=== PATIENT | male | born 1965 | race Caucasian/White ===

== ENCOUNTER 2020-07-08 09:34 | Inpatient (IN) | payer OTHER, SELFPAY ==
[2020-07-08] VITALS (7 sets, daily range): BP systolic 117–146; BP diastolic 71–98; PULSE 80–102; RESP 13–20; TEMP 36.6–36.7; O2SAT 94–97; BMI 34.1; BMI 33.5
--- NOTE | 2020-07-08 10:09 | ED.DCSUM_ITS ---
History of Present Illness Chief Complaint: ETOH Intox Informant: Patient Narrative: 55-year-old male presenting with alcoholic intoxication. Patient states he was sober for 6 years and started drinking about 10 days ago. He admits to drinking at least 1/5 of alcohol a day. He states he also drinks beer. Patient states that he has had alcohol withdrawal and is concerned he will withdrawal if he stops drinking. Patient denies drug abuse. Patient states he is physically active prior to this and has lost a lot of weight. Patient presenting for detox. Past Medical History - Allergies and Home Meds Allergies/Adverse Reactions: Allergies No Known Allergies Allergy (Verified 07/08/20 09:37) Prior records reviewed: Yes Past Medical History: - - Hypertension, EtOH abuse Lives: Spouse/ Significant Other Smoking Status: Never smoker Alcohol: None Drugs: None - Family History Maternal Family History: Reports: No pertinent history Paternal Family History: Reports: No pertinent history Review of Systems General: Denies: Chills, Fever, Sweats Eyes: Denies: Visual changes - bilaterally, Diplopia ENT: Denies: Rhinorrhea, Sore throat Respiratory: Denies: Dyspnea, Cough, Dyspnea on exertion Gastrointestinal: Denies: Abdominal pain, Nausea, Vomiting, Diarrhea, Melena, Hematochezia Genitourinary: Denies: Dysuria, Hematuria, Frequency Musculoskeletal: Denies: Back pain, Extremity Pain Skin: Denies: Rash, Wounds Neurological: Denies: Headache, Weakness, Numbness Psych: Denies: Depression, Anxiety, Suicidal thoughts, Suicidal ideations, -, - Physical Exam Vital Signs/Narrative: Vital Signs Temp Pulse Resp BP Pulse Ox 07/08/20 09:38 98.0 F 91 17 146/98 H 96 General: Well nourished, Well developed, No Acute Distress Head: Normocephalic, Atraumatic Eyes: Perrl, EOMI ENT: Moist mucous membranes, No rhinorrhea Cardiovascular: Regular rate, Regular rhythm Abdomen: Soft, Nontender, Nondistended, Normal bowel sounds Back: Nontender, Normal Inspection Extremities: Nontender, No edema Skin: Normal color, No rash Neurological: Alert, Oriented x3, Cranial nerves II-XII grossly intact, Normal Strength, Normal Sensation Psychological: Normal affect, Normal Mood Diagnostic/Tx/Re-eval Laboratory Data 07/08/20 07/08/20 07/08/20 10:15 10:15 10:15 WBC 6.0 RBC 5.07 Hgb 15.0 Hct 45.4 MCV 89.5 MCH 29.6 MCHC 33.0 RDW Std Deviation 43.0 RDW Coeff of Trever 13.2 Plt Count 230 MPV 8.8 Immature Gran % (Auto) 0.300 Neut % (Auto) 58.1 Lymph % (Auto) 28.0 [place] % (Auto) 7.6 Eos % (Auto) 4.5 Baso % (Auto) 1.5 H Absolute Neuts (auto) 3.5 Absolute Lymphs (auto) 1.69 Nucleated RBC % 0 Sodium 139 Potassium 3.9 Chloride 103 Carbon Dioxide 26.0 Anion Gap 10 BUN 9 Creatinine 0.77 Estim Creat Clear Calc 112.73 Est GFR (MDRD) Af Amer 133 Est GFR (MDRD) Non-Af 110 BUN/Creatinine Ratio 11.6 Glucose 91 Calcium 8.4 L Total Bilirubin 0.40 AST 43 H ALT 59 Alkaline Phosphatase 52 Total Protein 8.1 Albumin 4.0 Globulin 4.1 Albumin/Globulin Ratio 1.0 Ethyl Alcohol 334.0 H* - Medical Decision Making 55-year-old male presenting for EtOH detox. He states he has been drinking up to 1/5 a day. Patient states he had not been drinking for about 6 years and then recently started. Patient does not appear to be in withdrawal actively. He states he drank before he came. His EtOH is 334. His other lab work is unremarkable. Patient requested something for nausea and this was provided. Patient will be admitted to the hospital for detox. Impression: 1. EtOH abuse 2. EtOH intoxication ED Disposition - Plan for ED Patient: Disposition: Acute Care Hospital [facility]
[2020-07-08 10:35] LABS: AST(SGOT) 43 U/L (15-37); Alanine Aminotransfer ALT/SGPT 59 U/L (16-61); Alkaline Phosphatase 52 U/L (45-117); Anion Gap 10 (5-15); BUN 9 mg/dL (7-18); BUN/Creat Ratio 11.6 RATIO (10-20); Calcium,Total 8.4 mg/dL (8.5-10.1); Chloride 103 mmol/L (98-107); Creatinine, Serum 0.77 mg/dL (0.70-1.30); EST Glomerular Filtration Rate 110 mL/min (>60); Est Glom Filt Rate - Afr Amer 133 mL/min (>60); Estimated Creatinine Clearance 112.73 ml/min; Globulin 4.1 g/dL (2.2-4.2); Glucose 91 mg/dL (74-106); Potassium 3.9 mmol/L (3.5-5.1); Protein, Total 8.1 g/dL (6.4-8.2); Sodium Level 139 mmol/L (136-145)
[2020-07-08 10:41] LABS: Absolute Lymphocyte Count 1.69 X10^3/uL (0.83-4.51); Absolute Neutrophil Count 3.5 X10^3/uL (2.0-7.7); Basophil# 0.09 X10^3/uL; Basophil% 1.5 % (0-1); Eosinophil# 0.27 X10^3/uL; Eosinophils% 4.5 % (0-5); Hematocrit 45.4 % (40-54); Lymphocyte # 1.69 X10^3/ul (4.0); Mean Corpuscular Hgb 29.6 pg (27.0-32.0); Mean Corpuscular Volume 89.5 fL (80-94); Mean Platelet Vol. 8.8 fl (6.2-12.0); Monocyte# 0.46 X10^3/uL; Monocyte% 7.6 % (0-10); NRBC Flagged by Analyzer 0 % (0-5); Neutrophil # 3.51 X10^3/uL (2.7-7.7); Neutrophil % 58.1 % (47-70); Platelet Count 230 K/mm3 (150-450); RBC Distribution Width CV 13.2 % (11.6-14.6); Red Blood Count 5.07 M/mm3 (4.6-6.2)
[2020-07-08] MEDS: Ondansetron 4 MG/2 ML Vial IV (11:15)
--- NOTE | 2020-07-08 11:47 | PCM.HP.STD ---
Problem List (1) Acute alcohol withdrawal Status: Acute (2) Acute alcohol intoxication Status: Acute (3) Depression Status: Chronic (4) Hypertension Status: Chronic (5) Alcohol abuse Status: Chronic History of Present Illness Date of Admission: 07/08/20 Chief Complaint: Presented to the ED requesting admission for acute alcohol intoxication/withdrawal. The patient is a 55 year old M presented to the ED with icon intoxication requesting admission for medical stabilization to avoid going into severe withdrawal. Patient stated that he was sober for 6 years but started to drink again over the last 10 days. He has been drinking every day, 1/5 of vodka every day and also drinks beers. His last drink was this morning around 3 AM. Patient did mention that he had a history of severe alcohol withdrawal symptoms and he is afraid that he will go into severe withdrawal if he stops drinking. At this time, he denied significant withdrawal symptoms. He complained of nausea, denied abdominal pain or vomiting. He denied chest pain or shortness of breath. He has history of hypertension and he has been on Accupril and Corgard and his blood pressure has been stable. He had a history of depression and he has been on Lexapro. In the emergency department, his vital signs were stable. His routine blood work was unremarkable. LFT was unremarkable. Blood alcohol level is 354. Urine drug screen is pending. He is being admitted for acute alcohol intoxication/withdrawal for medical stabilization. Past Medical History Past Medical History (Chronic Problems): Chronic Problems Depression (Chronic) Hypertension (Chronic) Alcohol abuse (Chronic) Allergies No Known Allergies Allergy (Verified 07/08/20 09:37) Home Medications: Ambulatory Orders Medication Instructions Recorded Escitalopram Oxalate [Lexapro] 10 mg PO DAILY 07/08/20 Nadolol [Corgard] 40 mg PO DAILY 07/08/20 Quinapril HCl [Accupril] 40 mg PO DAILY 07/08/20 Surgical History: - - Cervical spine fusion surgery. Psychiatric History: Depression Lives: Spouse/ Significant Other Smoking Status: Never smoker Alcohol: Heavy Drugs: None - *Family History Maternal History Items: No pertinent history Paternal History Items: No pertinent history Review of Systems Constitutional: Denies: Anorexia, Chills, Fever, Weakness Eyes: Denies: Blurred vision, Double vision, Drainage, Redness HEENT: Denies: Difficulty Hearing, Dysphasia, Ear Pain, Eye Pain, Nasal Congestion Cardiovascular: Denies: Chest Pain, Chest Pressure, Edema, Light Headedness, Palpitations, Syncope Respiratory: Denies: Cough, Pleuritic Pain, Shortness of Breath, Sputum production, Wheezing Gastrointestinal: Reports: Nausea. Denies: Abdominal Pain, Constipation, Diarrhea, Vomiting Genitourinary: Denies: Dysuria, Frequency, Hematuria Musculoskeletal: Denies: Arm Pain, Back Pain, Foot Pain Skin: Denies: Dryness, Rash Neurological: Denies: Balance problems, Change in Speech, Slurred speech, Confusion, Headaches, Incoordination, Numbness Psychiatric: Reports: Depression. Denies: Anxiety Endocrine: Denies: Change in Body Habitus, Polydipsia, Polyuria VTE Information - Inpt Only VTE Present on Admission: No VTE Mechan Device Prophylaxis: None VTE Pharm Prophylaxis ordered?: No - Physical Exam Vitals/I&O's: Vital Signs Temp Pulse Resp BP Pulse Ox 98.0 F 88 20 H 117/72 97 07/08/20 11:33 07/08/20 11:33 07/08/20 11:33 07/08/20 11:33 07/08/20 11:33 Oxygen Delivery Method Room Air Weight: 244 lb 7.882 oz Body Mass Index (BMI) 34.1 General: Alert, Oriented x3, Cooperative, No apparent distress HEENT: Atraumatic, PERRLA, EOMI, Normocephalic Oral: Moist Mucosa, No Gingival or Mucosal Lesions/ Ulcerations Neck: Supple, No JVD, Negative Carotid Bruits, Trachea Midline, Thyroid Normal Size and Texture Lungs: Clear to auscultation, Normal air movement, No rhonchi, No wheeze, No rales Cardiovascular: Regular rate, Regular Rhythm, Normal S1, Normal S2, No murmurs, PMI Normal Abdomen: Bowel Sounds Present, Soft, Non Tender, Non-Distended, No Hepato-splenomegaly Extremities: No clubbing, No cyanosis, No edema Skin: No rashes, No breakdown Lymphatic: No Cervical, Supraclavicular, or Inguinal Adenopathy Neurological: Cranial nerves II-XII grossly intact, Motor Exam 5/5 strength throughout Psych/Mental Status: Normal Affect, Appropriate, Alert and oriented to time, place, person, mood and affect Laboratory Results 07/08/20 10:15: Sodium 139, Potassium 3.9, Chloride 103, Carbon Dioxide 26.0, Anion Gap 10, BUN 9, Creatinine 0.77, Estim Creat Clear Calc 112.73, Est GFR (MDRD) Af Amer 133, Est GFR (MDRD) Non-Af 110, BUN/Creatinine Ratio 11.6, Glucose 91, Calcium 8.4 L, Total Bilirubin 0.40, AST 43 H, ALT 59, Alkaline Phosphatase 52, Total Protein 8.1, Albumin 4.0, Globulin 4.1, Albumin/Globulin Ratio 1.0 07/08/20 10:15: Ethyl Alcohol 334.0 H* 07/08/20 10:15: WBC 6.0, RBC 5.07, Hgb 15.0, Hct 45.4, MCV 89.5, MCH 29.6, MCHC 33.0, RDW Std Deviation 43.0, RDW Coeff of Trever 13.2, Plt Count 230, MPV 8.8, Immature Gran % (Auto) 0.300, Neut % (Auto) 58.1, Lymph % (Auto) 28.0, [place] % (Auto) 7.6, Eos % (Auto) 4.5, Baso % (Auto) 1.5 H, Absolute Neuts (auto) 3.5, Absolute Lymphs (auto) 1.69, Nucleated RBC % 0 Assessment/Plan All Active Problems Acute alcohol withdrawal (Acute) Acute alcohol intoxication (Acute) This is a 55 years old male patient presented to the emergency room requesting admission for acute alcohol intoxication/withdrawal for medical stabilization #1 acute alcohol intoxication/withdrawal: Currently, blood alcohol level is 334. Patient is alert, oriented x3. He states that he will history of severe withdrawal symptoms and he is afraid of going into severe withdrawal if he stops drinking. Currently, vital signs are stable. Routine blood work was unremarkable. Urine drug screen was ordered. Plan: Admit to [facility] floor, initiate alcohol withdrawal protocol with tapering phenobarbital, thiamine, folic acid, as needed Bentyl, Tylenol, Neurontin, Vistaril, Imodium, Zofran and trazodone, consult 180 program. #2 hypertension: Stable, continue quinapril and Corgard. #3 depression: Continue Lexapro. #4 DVT prophylaxis: Low risk patient, no prophylaxis indicated. This note was generated with [employer] dictation software. It may contain incorrect words, spelling, and punctuation that were not noted in checking the note before signing. Inpatient E&M: 63832 Init Hosp L2
[2020-07-08] MEDS: Phenobarbital 32.4 MG Tablet 64.8 MG PO ×3 (12:56→20:41)
[2020-07-08] MEDS: hydrOXYzine PAM 25 MG Capsule 50 MG PO (15:52)
[2020-07-08] MEDS: Ondansetron 8 MG Tablet PO (15:52)
[2020-07-08] MEDS: Gabapentin 300 MG Capsule PO (20:41)
[2020-07-09 00:35] VITALS: BP 157/101; PULSE 76; RESP 18; TEMP 36.3; O2SAT 98
[2020-07-09] MEDS: Phenobarbital 32.4 MG Tablet 64.8 MG PO ×6 (00:41→21:21)
[2020-07-09 01:32] LABS: Amphetamine Urine VISTA NEGATIVE (<1000 ng/mL); Barbiturate Urine VISTA POSITIVE (< 200 ng/mL); Benzodiazepine Urine VISTA NEGATIVE (< 200 ng/mL); Cocaine Urine VISTA NEGATIVE (< 300 ng/mL); Ecstacy Urine VISTA NEGATIVE (< 500 ng/mL); Methadone Urine VISTA NEGATIVE (< 300 ng/mL); PCP Urine VISTA NEGATIVE (< 25 ng/mL); THC Urine VISTA NEGATIVE (< 50 ng/mL); Vista UDS pH Range 6
[2020-07-09 04:34] VITALS: BP 151/102; PULSE 73; RESP 16; TEMP 36.5; O2SAT 100
--- NOTE | 2020-07-09 08:18 | PN_ITS ---
Patient Problems: Active and Suspected Problems Acute alcohol withdrawal (Acute) Acute alcohol intoxication (Acute) Subjective: Chief complaint: Follow-up after admission for acute alcohol intoxication/withdrawal. Patient seen and examined. No acute events overnight. He states that he had good sleep last night, no significant withdrawal symptoms. Vital signs are stable. - Physical Exam Vitals/I&O's: Vital Signs Temp Pulse Resp BP Pulse Ox 97.7 F L 73 16 151/102 H 100 07/09/20 04:34 07/09/20 04:34 07/09/20 04:34 07/09/20 04:34 07/09/20 04:34 Oxygen Delivery Method Room Air Weight: 240 lb Body Mass Index (BMI) 33.5 Intake and Output for Last 24 Hours 07/07/20 07/08/20 07/09/20 23:59 23:59 23:59 Intake Total 1500 / 2000 800 / 800 Balance 1500 / 2000 800 / 800 General: Alert, Oriented x3, Cooperative, No apparent distress HEENT: Atraumatic, PERRLA, EOMI, Normocephalic Oral: Moist Mucosa, No Gingival or Mucosal Lesions/ Ulcerations Neck: Supple, No JVD, Negative Carotid Bruits, Trachea Midline, Thyroid Normal Size and Texture Lungs: Clear to auscultation, Normal air movement, No rhonchi, No wheeze, No rales Cardiovascular: Regular rate, Regular Rhythm, Normal S1, Normal S2, PMI Normal Abdomen: Bowel Sounds Present, Soft, Non Tender, Non-Distended, No Hepato- splenomegaly Extremities: No clubbing, No cyanosis, No edema Skin: No rashes, No breakdown Lymphatic: No Cervical, Supraclavicular, or Inguinal Adenopathy Neurological: Cranial nerves II-XII grossly intact, Neuro grossly intact Psych/Mental Status: Normal Affect, Appropriate, Alert and oriented to time, place, person, mood and affect Laboratory Results 07/08/20 10:15: Sodium 139, Potassium 3.9, Chloride 103, Carbon Dioxide 26.0, Anion Gap 10, BUN 9, Creatinine 0.77, Estim Creat Clear Calc 112.73, Est GFR (MDRD) Af Amer 133, Est GFR (MDRD) Non-Af 110, BUN/Creatinine Ratio 11.6, Glucose 91, Calcium 8.4 L, Total Bilirubin 0.40, AST 43 H, ALT 59, Alkaline Phosphatase 52, Total Protein 8.1, Albumin 4.0, Globulin 4.1, Albumin/Globulin Ratio 1.0 07/08/20 10:15: Ethyl Alcohol 334.0 H* 07/08/20 10:15: WBC 6.0, RBC 5.07, Hgb 15.0, Hct 45.4, MCV 89.5, MCH 29.6, MCHC 33.0, RDW Std Deviation 43.0, RDW Coeff of Trever 13.2, Plt Count 230, MPV 8.8, Immature Gran % (Auto) 0.300, Neut % (Auto) 58.1, Lymph % (Auto) 28.0, [place] % (Auto) 7.6, Eos % (Auto) 4.5, Baso % (Auto) 1.5 H, Absolute Neuts (auto) 3.5, Absolute Lymphs (auto) 1.69, Nucleated RBC % 0 07/09/20 00:45: Urine Opiates Screen NEGATIVE, Urine Methadone Screen NEGATIVE, Ur Barbiturates Screen POSITIVE H, Ur Phencyclidine Scrn NEGATIVE, Ur Amphetamines Screen NEGATIVE, U Methamphetamin-MDMA NEGATIVE, U Benzodiazepines Scrn NEGATIVE, Urine Cocaine Screen NEGATIVE, U Cannabinoids Screen NEGATIVE, Ur Drug Screen Comment Current Medications Acetaminophen (Acetaminophen 500 Mg Tablet) 500 mg PO Q4H PRN PRN PRN Reason: Temp > 100.4 F Dicyclomine HCl (Dicyclomine 10 Mg Capsule) 20 mg PO Q6H PRN PRN PRN Reason: abdominal discomfort Escitalopram Oxalate (Escitalopram Oxalate 10 Mg Tablet) 10 mg PO DAILY [facility] Folic Acid (Folic Acid 1 Mg Tablet) 1 mg PO DAILY@0800 [facility] Gabapentin (Gabapentin 300 Mg Capsule) 300 mg PO Q8H PRN PRN PRN Reason: moderate to severe anxiety Last Admin: 07/08/20 20:41 Dose: 300 mg Documented by: Hydroxyzine Pamoate (Hydroxyzine Giuliana 25 Mg Capsule) 50 mg PO Q4H PRN PRN PRN Reason: mild anxiety Last Admin: 07/08/20 15:52 Dose: 50 mg Documented by: Sodium Chloride () 250 mls @ 15 mls/hr IV .[id number] PRN PRN Reason: Saline Flush Sodium Chloride () 250 mls @ 15 mls/hr IV .[id number] PRN PRN Reason: Additional IVPB Infusion Lisinopril (Lisinopril 40 Mg Tablet) 40 mg PO DAILY [facility] Loperamide HCl (Loperamide 2 Mg Capsule) 2 mg PO Q4H PRN PRN PRN Reason: LOOSE STOOLS Nadolol (Nadolol 40 Mg Tablet) 40 mg PO DAILY [facility] Ondansetron HCl (Ondansetron 8 Mg Tablet) 8 mg PO Q8H PRN PRN PRN Reason: NAUSEA Last Admin: 07/08/20 15:52 Dose: 8 mg Documented by: Phenobarbital (Phenobarbital 32.4 Mg Tablet) 97.2 mg PO Q4H NANETTE; Taper Stop: 07/12/20 20:44 Last Admin: 07/09/20 04:41 Dose: 97.2 mg Documented by: Sodium Chloride (0.9% Saline Lock 10 Ml Syringe) 10 - 40 ml IV UD PRN PRN Reason: SALINE FLUSH Thiamine HCl (Thiamine Hydrochloride 100 Mg Tablet) 100 mg PO DAILYCM [facility] Trazodone HCl (Trazodone 100 Mg Tablet) 100 mg PO QHS PRN PRN Reason: INSOMNIA Medical Necessity - Tobacco Use Smoking Status: Never smoker Assessment/Plan All Active Problems Acute alcohol withdrawal (Acute) Acute alcohol intoxication (Acute) This is a 55 years old male patient presented to the emergency room requesting admission for acute alcohol intoxication/withdrawal for medical stabilization #1 acute alcohol intoxication/withdrawal: He is on phenobarbital taper, thiamine and folate acid supplement, as needed Bentyl, Tylenol, Neurontin, Vistaril, Imodium, Zofran, trazodone. Patient is doing fine, no significant withdrawal symptoms. He is a little bit above 24 hours away from last drink. Vital signs are stable. On admission, blood alcohol level is 334. Urine drug screen was positive for barbiturates which he has been on. Plan to continue same treatment, consult 180 program. #2 hypertension: Blood pressure stable, continue quinapril and Corgard. #3 depression: Continue Lexapro. #4 DVT prophylaxis: Low risk patient, no prophylaxis indicated. This note was generated with [employer] software. It may contain incorrect words, spelling, and punctuation that were not noted in checking the note before signing. Inpatient E&M: 03539 Subs Hosp L2
[2020-07-09 08:30] VITALS: BP 146/91; PULSE 92; RESP 16; RESP 18; TEMP 37; O2SAT 100; O2SAT 99
[2020-07-09] MEDS: Thiamine Hydrochloride 100 MG Tablet PO (08:56)
[2020-07-09] MEDS: Lisinopril 40 MG Tablet PO (08:56)
[2020-07-09] MEDS: Nadolol 40 MG Tablet PO (08:56)
[2020-07-09] MEDS: Folic Acid 1 MG Tablet PO (08:56)
[2020-07-09] MEDS: Escitalopram Oxalate 10 MG Tablet PO (08:57)
[2020-07-09 17:02] VITALS: BP 151/97; PULSE 81; RESP 18; TEMP 36.6; O2SAT 96
[2020-07-09 21:18] VITALS: BP 133/88; PULSE 75; RESP 18; TEMP 37; O2SAT 96
[2020-07-09] MEDS: traZODone 100 MG Tablet PO (21:21)
[2020-07-09 21:27] VITALS: BP 133/88; PULSE 75; RESP 16; TEMP 37; O2SAT 96
[2020-07-10] MEDS: Phenobarbital 32.4 MG Tablet 64.8 MG PO ×4 (00:45→12:05)
[2020-07-10 00:47] VITALS: BP 137/89; PULSE 68; RESP 16; TEMP 36.8; O2SAT 96
[2020-07-10 04:35] VITALS: BP 113/71; PULSE 78; RESP 16; TEMP 36.9; O2SAT 96
--- NOTE | 2020-07-10 08:20 | DCINST_ITS ---
- Discharge Diagnoses Current Active Problems: Current Active and Chronic Problems Acute alcohol withdrawal (Acute) Acute alcohol intoxication (Acute) Depression (Chronic) Hypertension (Chronic) Alcohol abuse (Chronic) You will use the following diet at home:: No restrictions Discharge Activity: Return to Normal Activity Allergies/Adverse Reactions: Allergies No Known Allergies Allergy (Verified 07/08/20 09:37) Medications to take at Discharge Escitalopram Oxalate [Lexapro] 10 mg PO DAILY 07/08/20 Nadolol [Corgard (Beta Truman)] 40 mg PO DAILY 07/08/20 Quinapril HCl [Accupril] 40 mg PO DAILY 07/08/20 Primary Care Physician: Milan Hollins MD [Primary Care Provider] - Please follow up with your Primary Care Physician in: in 1 week Test Results: Test results from this visit will be discussed in further detail at your follow- up appointment, if applicable. Proposed Discharge Date: 07/10/20
--- NOTE | 2020-07-10 08:21 | PCM.DC.SUM ---
Discharge Date and Diagnosis - Problem List Patient Problems: Active and Suspected Problems Acute alcohol withdrawal (Acute) Acute alcohol intoxication (Acute) Date of Admission: 07/08/20 Date of Discharge: 07/10/20 - Primary Discharge Diagnosis Acute Problems: Active Problems Acute alcohol withdrawal (Acute) Acute alcohol intoxication (Acute) - Secondary Discharge Diagnosis Chronic Problems: Chronic Problems Depression (Chronic) Hypertension (Chronic) Alcohol abuse (Chronic) Hospital Course and Treatment Summary of Care Provided: The patient is a 55 year old M with history of chronic alcohol abuse presented with acute alcohol withdrawal 1. Acute alcohol withdrawal ?Admitted to regular nursing floor for stabilization using phenobarb per 2. Chronic alcohol dependence ?Counseled on cessation 3. Hypertension - Blood pressure controlled, home medications continued with dose adjustment as needed 4. DVT prophylaxis ?Low risk did encourage early ambulation . Depression ?Patient is on SSRI did continue Patient Problems: Active and Suspected Problems Acute alcohol withdrawal (Acute) Acute alcohol intoxication (Acute) - Physical Exam Vitals/I&O's: Vital Signs Temp Pulse Resp BP Pulse Ox 98.4 F 78 16 113/71 96 07/10/20 04:35 07/10/20 04:35 07/10/20 04:35 07/10/20 04:35 07/10/20 04:35 Oxygen Delivery Method Room Air Weight: 108.862 kg Body Mass Index (BMI) 33.5 Intake and Output for Last 24 Hours 07/08/20 07/09/20 07/10/20 23:59 23:59 23:59 Intake Total 1499 / 1999 1550 / 1550 Balance 1500 / 1999 1550 / 1550 General: Alert HEENT: Atraumatic Oral: Moist Mucosa Lungs: Clear to auscultation Neurological: Neuro grossly intact Psych/Mental Status: Normal Affect Current Medications Acetaminophen (Acetaminophen 500 Mg Tablet) 500 mg PO Q4H PRN PRN PRN Reason: Temp > 100.4 F Dicyclomine HCl (Dicyclomine 10 Mg Capsule) 20 mg PO Q6H PRN PRN PRN Reason: abdominal discomfort Escitalopram Oxalate (Escitalopram Oxalate 10 Mg Tablet) 10 mg PO DAILY [facility] Last Admin: 07/09/20 08:57 Dose: 10 mg Documented by: Folic Acid (Folic Acid 1 Mg Tablet) 1 mg PO DAILY@0800 [facility] Last Admin: 07/09/20 08:56 Dose: 1 mg Documented by: Gabapentin (Gabapentin 300 Mg Capsule) 300 mg PO Q8H PRN PRN PRN Reason: moderate to severe anxiety Last Admin: 07/08/20 20:41 Dose: 300 mg Documented by: Hydroxyzine Pamoate (Hydroxyzine Giuliana 25 Mg Capsule) 50 mg PO Q4H PRN PRN PRN Reason: mild anxiety Last Admin: 07/08/20 15:52 Dose: 50 mg Documented by: Sodium Chloride () 250 mls @ 15 mls/hr IV .[id number] PRN PRN Reason: Saline Flush Sodium Chloride () 250 mls @ 15 mls/hr IV .[id number] PRN PRN Reason: Additional IVPB Infusion Lisinopril (Lisinopril 40 Mg Tablet) 40 mg PO DAILY [facility] Last Admin: 07/09/20 08:56 Dose: 40 mg Documented by: Loperamide HCl (Loperamide 2 Mg Capsule) 2 mg PO Q4H PRN PRN PRN Reason: LOOSE STOOLS Nadolol (Nadolol 40 Mg Tablet) 40 mg PO DAILY [facility] Last Admin: 07/09/20 08:56 Dose: 40 mg Documented by: Ondansetron HCl (Ondansetron 8 Mg Tablet) 8 mg PO Q8H PRN PRN PRN Reason: NAUSEA Last Admin: 07/08/20 15:52 Dose: 8 mg Documented by: Phenobarbital (Phenobarbital 32.4 Mg Tablet) 64.8 mg PO Q4H [facility]; Taper Stop: 07/12/20 20:44 Last Admin: 07/10/20 04:36 Dose: 64.8 mg Documented by: Sodium Chloride (0.9% Saline Lock 10 Ml Syringe) 10 - 40 ml IV UD PRN PRN Reason: SALINE FLUSH Thiamine [facility] ([facility] Hydro[facility] Mg [facility]t) [facility] Last Admin: 07/09/20 08:56 Dose: 100 mg Documented by: Trazodone HCl (Trazodone 100 Mg Tablet) 100 mg PO QHS PRN PRN Reason: INSOMNIA Last Admin: 07/09/20 21:21 Dose: 100 mg Documented by: Discharge Diet: No Restrictions Discharge Activity: Return to Normal Activity Home Medications: Medications to take at Discharge Escitalopram Oxalate [Lexapro] 10 mg PO DAILY 07/08/20 Nadolol [Corgard (Beta [place])] 40 mg PO DAILY 07/08/20 Quinapril HCl [Accupril] 40 mg PO DAILY 07/08/20 Primary Care Physician: Milan Hollins MD [Primary Care Provider] - Please follow up with your Primary Care Physician in: in 1 week Disposition: Home Minutes spent on discharge:: 35 Patient Condition:: Stable Medical Necessity - Tobacco Use Smoking Status: Never smoker Meaningful Use Info Meaningful Use Diagnoses (Choose all that apply): None applicable Inpatient E&M: 85179 Disch Hosp
[2020-07-10] MEDS: Folic Acid 1 MG Tablet PO (08:34)
[2020-07-10] MEDS: Thiamine Hydrochloride 100 MG Tablet PO (08:34)
--- NOTE | 2020-07-10 09:30 | ADDICTION ---
This underwriter solicitation director met with PT to complete ASAM, MSE, AUDIT assessments and to plan for discharge. PT respectfully declined to complete formal d/c plan but is willing in engage with AA meetings and accepted this underwriter solicitation director's contact information for f/u, if needed in the future. All assessments completed, faxed to [facility] and placed in PT's chart. PT has transportation and plans to be picked up at 1pm (main entrance) PT to d/c to home and plans to attend AA meetings.
--- NOTE | 2020-07-10 09:59 | PHA.DC.MR ---
Pharmacy Service has performed discharge medication reconciliation for this patient. No new medications issued at time of discharge review. Home Medications Escitalopram Oxalate [Lexapro] 10 mg PO DAILY 07/08/20 Nadolol [Corgard (Beta [place])] 40 mg PO DAILY 07/08/20 Quinapril HCl [Accupril] 40 mg PO DAILY 07/08/20 The patient's discharge medication list was reviewed for discrepancies and discrepancies were resolved.
[2020-07-10 10:00] VITALS: BP 134/93; PULSE 98; RESP 16; TEMP 37.1; O2SAT 98
[2020-07-10] MEDS: Lisinopril 40 MG Tablet PO (10:43)
[2020-07-10] MEDS: Nadolol 40 MG Tablet PO (10:43)
[2020-07-10] MEDS: Escitalopram Oxalate 10 MG Tablet PO (10:43)
[2020-07-10 12:06] VITALS: BP 119/84; PULSE 95; RESP 18; TEMP 36.8; O2SAT 100
== END 2020-07-10 12:20 | disposition home or self-care (01) | DRG 897 ==
LOC: ED 10:38 → MS3 11:54
PROVIDERS: Admitting Provider Hospitalist; Emergency Provider Student in an Organized Health Care Education/Training Program; PCP Family Medicine; Visit Provider Internal Medicine
DX: F10.239 Alcohol dependence with withdrawal, unspecified (principal); F10.229 Alcohol dependence with intoxication, unspecified; I10 Essential (primary) hypertension; Y90.8 Blood alcohol level of 240 mg/100 ml or more; F32.9 Major depressive disorder, single episode, unspecified; Z79.899 Other long term (current) drug therapy
CPT/HCPCS: 80053; 80307; 82077; 85025; 99284; A4216; J2405

== ENCOUNTER 2021-09-26 11:58 | Inpatient (IN) | payer OTHER, SELFPAY ==
[2021-09-26] VITALS (23 sets, daily range): BP systolic 73–152; BP diastolic 49–89; PULSE 62–89; RESP 13–22; TEMP 36.4–37.2; O2SAT 16–100; BMI 44.9; BMI 33.8
--- NOTE | 2021-09-26 12:03 | ED.RN ---
INFORMED NURSING AND PROVIDER REGARDING BP
--- NOTE | 2021-09-26 12:10 | EKG12_ITS ---
Test Reason : Blood Pressure : / mmHG Vent. Rate : 066 BPM Atrial Rate : 066 BPM P-R Int : 166 ms QRS Dur : 108 ms QT Int : 462 ms P-R-T Axes : 019 056 031 degrees QTc Int : 484 ms Normal sinus rhythm Prolonged QT Abnormal ECG Confirmed by DONY ENGLISH, TUNDE ([id number]), editor sound KHLOE SMITH ([id number]) on 09/27/2021 11:05:23 AM Referred By: LIZANDRO Confirmed By:TUNDE NAPOLES MD
--- NOTE | 2021-09-26 12:15 | EX.ED.DYSGE1 ---
HPI History of Present Illness Chief Complaint: ETOH Intox Informant: patient Narrative Narrative: Patient presents via EMS secondary to alcohol intoxication. Patient's is not able to give providing much history. He does admit to drinking a bunch of vodka. He denies taking any other drugs or pills other than his prescribed blood pressure medication. He denies taking extra medication. [facility] Medical History Alcohol abuse Depression Hypertension Home Medications escitalopram oxalate 10 mg PO DAILY 07/08/20 [History Last Taken Unknown] nadolol 40 mg PO DAILY 07/08/20 [History Last Taken Unknown] quinapril 40 mg PO DAILY 07/08/20 [History Last Taken Unknown] Allergy/AdvReac Type Severity Reaction Status Date / Time No Known Allergies Allergy Verified 07/08/20 09:37 Social History Smoking Status: Never smoker ROS ROS ED Review of Systems ROS Unobtainable: due to mental condition EXAM Physical Exam Const Vital Signs: 09/26/21 11:59 09/26/21 12:00 09/26/21 12:10 Temperature 99 F Temperature Source Temporal Pulse Rate 69 71 62 Respiratory Rate 16 22 H 17 Blood Pressure 73/49 L 80/61 L 83/57 L Blood Pressure Mean 57 67 65 Blood Pressure Source Monitor Blood Pressure Position Supine Blood Pressure Location Right Arm Pulse Ox 16 93 93 Oxygen Delivery Method Room Air Room Air Nasal Cannula Oxygen Flow Rate (L/min) 3 09/26/21 13:00 09/26/21 13:27 09/26/21 13:46 Temperature 97.7 F L Temperature Source Temporal Pulse Rate 65 65 Respiratory Rate 18 18 Blood Pressure 81/55 L 73/49 L 85/58 L Blood Pressure Mean 63 57 67 Blood Pressure Source Monitor Monitor Blood Pressure Position Blood Pressure Location Left Arm Left Arm Pulse Ox 99 97 Oxygen Delivery Method Nasal Cannula Nasal Cannula Oxygen Flow Rate (L/min) 3 3 09/26/21 14:00 09/26/21 15:00 Temperature Temperature Source Pulse Rate 69 66 Respiratory Rate 20 H 16 Blood Pressure 85/56 L 103/78 Blood Pressure Mean 65 86 Blood Pressure Source Blood Pressure Position Blood Pressure Location Pulse Ox 100 98 Oxygen Delivery Method Nasal Cannula Nasal Cannula Oxygen Flow Rate (L/min) 3 3 Positive obese Nutritional Appearance: obese HEENT Reports moist mucous membranes Eyes EOMs intact bilaterally Neck supple Chest Wall inspection of chest normal and palpation of chest normal Resp normal respiratory effort and clear to auscultation bilaterally Cardio regular rate and regular rhythm GI non-tender Palpation: soft Extremity normal to inspection Neuro Neuro Narrative: Arouses to voice and answers questions. Skin no rashes or lesions noted MDM MDM MDM Narrative Medical decision making narrative: Patient has 2 IVs placed and given IV fluid boluses. Lab work obtained. Lab Data Attestation: I reviewed the patient's lab results. Labs: Laboratory Results - last 24 hr 09/26/21 09/26/21 09/26/21 12:15 12:15 12:15 WBC 9.0 RBC 5.23 Hgb 15.5 Hct 46.2 MCV 88.3 MCH 29.6 MCHC 33.5 RDW Std Deviation 43.0 RDW Coeff of Trever 13.2 Plt Count 210 MPV 8.3 Immature Gran % (Auto) 0.300 Neut % (Auto) 82.1 H Lymph % (Auto) 13.8 L [place] % (Auto) 3.3 Eos % (Auto) 0.1 Baso % (Auto) 0.4 Absolute Neuts (auto) 7.4 Absolute Lymphs (auto) 1.24 Nucleated RBC % 0 Sodium 136 Potassium 4.1 Chloride 101 Carbon Dioxide 16.0 L Anion Gap 19 H BUN 26 H Creatinine 1.31 H Estim Creat Clear Calc 71.46 Est GFR (MDRD) Af Amer 72 Est GFR (MDRD) Non-Af 60 BUN/Creatinine Ratio 19.8 Glucose 83 Lactic Acid Calcium 7.8 L Total Bilirubin 0.60 Direct Bilirubin 0.22 AST 43 H ALT 76 H Alkaline Phosphatase 56 Total Protein 7.6 Albumin 3.6 Globulin 4.0 Ethyl Alcohol 453.0 H* 09/26/21 12:15 WBC RBC Hgb Hct MCV MCH MCHC RDW Std Deviation RDW Coeff of Trever Plt Count MPV Immature Gran % (Auto) Neut % (Auto) Lymph % (Auto) [place] % (Auto) Eos % (Auto) Baso % (Auto) Absolute Neuts (auto) Absolute Lymphs (auto) Nucleated RBC % Sodium Potassium Chloride Carbon Dioxide Anion Gap BUN Creatinine Estim Creat Clear Calc Est GFR (MDRD) Af Amer Est GFR (MDRD) Non-Af BUN/Creatinine Ratio Glucose Lactic Acid 5.4 H* Calcium Total Bilirubin Direct Bilirubin AST ALT Alkaline Phosphatase Total Protein Albumin Globulin Ethyl Alcohol Radiography Diagnostic Testing: Clinical Impression(s) from Imaging Studies Chest X-Ray 09/26/21 13:50 IMPRESSION: Support devices: A right internal jugular approach central venous catheter terminates in the superior vena cava. Low lung volumes accentuate the interstitial markings and mediastinal prominence. No focal consolidations, effusions, or sizable pneumothorax. Questionable mild cardiomegaly although this may be related to low lung volumes. Stable partially visualized surgical fusion hardware. No acute findings in the bones or soft tissues. Electronically Signed: Sandro Feliciano, at 14:19 EDT , EKG Initial EKG: Attestation: I personally reviewed and interpreted this EKG as follows: Interpretation: Sinus Rhythm (Sinus at 66 with no acute ischemia.) Treatment and Re-Evaluation Narrative: After nearly 3 L of IV fluid patient's blood pressure remains low with MAP in the 50s. I discussed with the patient as well as his the need for central line placement and pressors. Right IJ line was placed and patient started on Levophed. Lab work reveals normal CBC. Chemistry studies significant for a BUN of 26 and creatinine of 1.31, slightly up from patient's prior values. EtOH is 453. Lactic acid is 5.4 at this time patient's systolic blood pressures in the 90s and low 100s on 5 mcg of Levophed. He is feeling improved. I will speak with hospitalist regarding admission. Discharge Plan Triage Chief Complaint: ETOH Intox ED Provider: Eva Aragon Dx/Rx/DC Orders Clinical Impression: Acute alcohol intoxication, Hypotension Prescriptions: No Action quinapril 40 MG tablet 40 mg PO DAILY RF: 0 nadolol 40 MG tablet 40 mg PO DAILY RF: 0 escitalopram oxalate 10 MG tablet 10 mg PO DAILY RF: 0 Primary Care Provider: Milan Hollins Referrals: Milan Hollins MD [Primary Care Provider] - Disposition Disposition: [facility]
[2021-09-26] MEDS: 0.9% Normal Saline 1,000 ML 1000 ML IV ×2 (12:17→12:18)
[2021-09-26 12:40] LABS: Absolute Lymphocyte Count 1.24 X10^3/uL (0.83-4.51); Absolute Neutrophil Count 7.4 X10^3/uL (2.0-7.7); Basophil# 0.04 X10^3/uL; Basophil% 0.4 % (0-1); Eosinophil# 0.01 X10^3/uL; Eosinophils% 0.1 % (0-5); Hematocrit 46.2 % (40-54); Hemoglobin 15.5 g/dL (13.0-16.5); Lymphocyte # 1.24 X10^3/ul (0.83-4.51); Lymphocyte % 13.8 % (19-41); Mean Corp Hgb Conc 33.5 g/dL (32-36); Mean Corpuscular Hgb 29.6 pg (27.0-32.0); Mean Corpuscular Volume 88.3 fL (80-94); Mean Platelet Vol. 8.3 fl (6.2-12.0); Monocyte% 3.3 % (0-10); NRBC Flagged by Analyzer 0 % (0-5); Neutrophil # 7.37 X10^3/uL (2.7-7.7); Neutrophil % 82.1 % (47-70); Platelet Count 210 K/mm3 (150-450); RBC Distribution Width CV 13.2 % (11.6-14.6); Red Blood Count 5.23 M/mm3 (4.6-6.2)
[2021-09-26 12:49] LABS: AST(SGOT) 43 U/L (15-37); Alanine Aminotransfer ALT/SGPT 76 U/L (16-61); Albumin, Serum 3.6 g/dL (3.2-5.0); Alkaline Phosphatase 56 U/L (45-117); Anion Gap 19 (5-15); BUN 26 mg/dL (7-18); BUN/Creat Ratio 19.8 RATIO (10-20); Bilirubin, Direct 0.22 mg/dL (0.00-0.30); Calcium,Total 7.8 mg/dL (8.5-10.1); Chloride 101 mmol/L (98-107); Creatinine, Serum 1.31 mg/dL (0.70-1.30); EST Glomerular Filtration Rate 60 mL/min (>60); Est Glom Filt Rate - Afr Amer 72 mL/min (>60); Estimated Creatinine Clearance 71.46 ml/min; Glucose 83 mg/dL (74-106); Potassium 4.1 mmol/L (3.5-5.1); Protein, Total 7.6 g/dL (6.4-8.2); Sodium Level 136 mmol/L (136-145)
[2021-09-26 13:06] LABS: Lactic Acid 5.4 mmol/L (0.4-1.9)
--- NOTE | 2021-09-26 13:50 | RAD_ITS ---
INDICATION: line placement EXAMINATION/TECHNIQUE: X-RAY - XR Chest 1 View COMPARISON: Chest radiograph from 12/22/2012 FINDINGS/ RAD/Chest 1 View (Portable) IMPRESSION: Support devices: A right internal jugular approach central venous catheter terminates in the superior vena cava. Low lung volumes accentuate the interstitial markings and mediastinal prominence. No focal consolidations, effusions, or sizable pneumothorax. Questionable mild cardiomegaly although this may be related to low lung volumes. Stable partially visualized surgical fusion hardware. No acute findings in the bones or soft tissues. Electronically Signed: Sandro Feliciano, at 14:19 EDT ,
--- NOTE | 2021-09-26 14:37 | ED.RN ---
lab calls with critical alcohol and lactate. dr. prado standing by nurses station. heard results
[2021-09-26] MEDS: 0.9% Normal Saline 1,000 ML 200 ML IV ×3 (14:38→22:55)
--- NOTE | 2021-09-26 15:34 | PCM.HP.STD ---
HPI - General General Date of Admission: 09/26/21 Date of Service: 09/26/21 Chief Complaint: Altered mental status, intoxication, needing detox HPI Narrative MARY DARBY, is a 56 M who presents with the above. Patient has history of alcohol abuse. He stated that he usually binge drinks. He drinks about a pint of vodka at that time. He was brought in by the EMS in an intoxicated state. He requested help with medical stabilization. Patient was found to be hypotensive in the emergency room. He received fluid boluses and remained hypotensive. A central line was placed and he was started on Levophed. Patient denied any fever or chills or dysuria or cough or shortness of breath. Patient cannot tell me if he took more of his blood pressure medications or not. In the ED, his blood pressure was 73/49, pulse of 69, respiratory 16, temperature 99F, respiratory rate was 16. His WBC count was 9.0, hemoglobin 15.5, platelet count 210. CMP was remarkable for bicarb of 16, anion gap was 19, BUN 26, creatinine 1.31. Lactic acid was 5.4. Admitting alcohol level was 453. Urine tox was pending. UA was unremarkable. Chest x-ray was also unremarkable. [facility] Medical History Alcohol abuse Depression Hypertension Home Medications escitalopram oxalate 10 mg PO DAILY 07/08/20 [History Last Taken Unknown] nadolol 40 mg PO DAILY 07/08/20 [History Last Taken Unknown] quinapril 40 mg PO DAILY 07/08/20 [History Last Taken Unknown] Allergy/AdvReac Type Severity Reaction Status Date / Time No Known Allergies Allergy Verified 07/08/20 09:37 Family History (Updated 09/26/21 @ 16:[address] Carmita Beckwith MD) Father Pancreatitis Mother No problems noted. Surgical History (Updated 09/26/21 @ 16:[address] Carmita Beckwith MD) History of neck surgery Social History (Updated 09/26/21 @ 16:[address] Carmita Beckwith MD) household members: spouse housing: house Smoking Status: Never smoker alcohol intake: current substance use type: does not use ROS ROS Narrative Constitutional: Denies: Anorexia, Chills, Fever, Night Sweats, Weight Change Eyes: Denies: Blurred vision, Cataracts, Conjunctivae Inflammation, Pain, Redness, Vision Change HEENT: Denies: Difficulty Hearing, Difficulty Swallowing, Head Aches, Hearing Changes, Sinus Congestion, Sinus Drainage Cardiovascular: Denies: Chest Pain, Orthopnea, Palpitations Respiratory: Denies: Cough, Shortness of breath at rest, Sputum production Gastrointestinal: Denies: Abdominal Pain, Nausea, Vomiting Genitourinary: Denies: Dysuria Musculoskeletal: Denies: Joint Pain, Joint stiffness, Joint swelling, Joint Tenderness Skin: Denies: Rash, Wounds Neurological: See HPI Vital Signs Vital Signs Vital Signs: 09/26/21 11:59 09/26/21 12:00 09/26/21 12:10 Temperature 99 F Temperature Source Temporal Pulse Rate 69 71 62 Respiratory Rate 16 22 H 17 Blood Pressure 73/49 L 80/61 L 83/57 L Blood Pressure Mean 57 67 65 Blood Pressure Source Monitor Blood Pressure Position Supine Blood Pressure Location Right Arm Pulse Ox 16 93 93 Oxygen Delivery Method Room Air Room Air Nasal Cannula Oxygen Flow Rate (L/min) 3 09/26/21 13:00 09/26/21 13:27 09/26/21 13:46 Temperature 97.7 F L Temperature Source Temporal Pulse Rate 65 65 Respiratory Rate 18 18 Blood Pressure 81/55 L 73/49 L 85/58 L Blood Pressure Mean 63 57 67 Blood Pressure Source Monitor Monitor Blood Pressure Position Blood Pressure Location Left Arm Left Arm Pulse Ox 99 97 Oxygen Delivery Method Nasal Cannula Nasal Cannula Oxygen Flow Rate (L/min) 3 3 09/26/21 14:00 09/26/21 15:00 Temperature Temperature Source Pulse Rate 69 66 Respiratory Rate 20 H 16 Blood Pressure 85/56 L 103/78 Blood Pressure Mean 65 86 Blood Pressure Source Blood Pressure Position Blood Pressure Location Pulse Ox 100 98 Oxygen Delivery Method Nasal Cannula Nasal Cannula Oxygen Flow Rate (L/min) 3 3 Weight Weight: 158.757 kg Body Mass Index (BMI) 44.9 Physical Exam Narrative Physical exam: General: Alert, Oriented x3, Cooperative, intoxicated, morbidly obese HEENT: Atraumatic Oral: Moist Mucosa Neck: Supple Lungs: Clear to auscultation Cardiovascular: HS I+II, regular, no murmurs Abdomen: Bowel Sounds Present, Soft, Non Tender Extremities: No edema Skin: No rashes, No breakdown Neurological: Grossly intact, slight slurring of the words from intoxication Psych/Mental Status: Appropriate Results Lab / Micro Data Result Diagrams: 09/26/21 12:15 09/26/21 12:15 Labs: Laboratory Results - last 24 hr 09/26/21 12:15: WBC 9.0, RBC 5.23, Hgb 15.5, Hct 46.2, MCV 88.3, MCH 29.6, MCHC 33.5, RDW Std Deviation 43.0, RDW Coeff of Trever 13.2, Plt Count 210, MPV 8.3, Immature Gran % (Auto) 0.300, Neut % (Auto) 82.1 H, Lymph % (Auto) 13.8 L, [place] % (Auto) 3.3, Eos % (Auto) 0.1, Baso % (Auto) 0.4, Absolute Neuts (auto) 7.4, Absolute Lymphs (auto) 1.24, Nucleated RBC % 0 09/26/21 12:15: Sodium 136, Potassium 4.1, Chloride 101, Carbon Dioxide 16.0 L, Anion Gap 19 H, BUN 26 H, Creatinine 1.31 H, Estim Creat Clear Calc 71.46, Est GFR (MDRD) Af Amer 72, Est GFR (MDRD) Non-Af 60, BUN/Creatinine Ratio 19.8, Glucose 83, Calcium 7.8 L, Total Bilirubin 0.60, Direct Bilirubin 0.22, AST 43 H, ALT 76 H, Alkaline Phosphatase 56, Total Protein 7.6, Albumin 3.6, Globulin 4.0 09/26/21 12:15: Ethyl Alcohol 453.0 H* 09/26/21 12:15: Lactic Acid 5.4 H* Radiology Impression Chest X-Ray 09/26/21 13:50 IMPRESSION: Support devices: A right internal jugular approach central venous catheter terminates in the superior vena cava. Low lung volumes accentuate the interstitial markings and mediastinal prominence. No focal consolidations, effusions, or sizable pneumothorax. Questionable mild cardiomegaly although this may be related to low lung volumes. Stable partially visualized surgical fusion hardware. No acute findings in the bones or soft tissues. Electronically Signed: Sandro Feliciano, at 14:19 EDT , Assessment & Plan Assessment/Plan (1) Hypotension: (2) Acute alcohol intoxication: PLAN: 1. Acute hypotension, unclear etiology Chest x-ray and UA unremarkable History of hypertension; unclear if patient took more medication than he showed Status post fluid boluses, started on Levophed Admit to ICU, monitor vitals, maintenance fluid, continue Levophed, wean off for MAP more than 65 2. Acute alcohol intoxication, desire for medical stabilization from acute alcohol withdrawal, Start on phenobarb taper, folic acid, multivitamin, and thiamine 3. Depression, continue Lexapro 4. Morbid obesity, BMI 44.9, complicates care and recovery 5. DVT PPx- Heparin SC 6. GI PPx- Famotidine Charges/Coding Visit Charges Inpatient E&M: 44481 Subs Hosp L2
[2021-09-26 15:54] LABS: Bacteria 0 SEEN /hpf (None Seen); Mucous, Urine 0 SEEN /hpf (<or=2+); Red Blood Cells-Urine 0 SEEN /hpf (0-5); Squamous Epithelial Cells - UA 0 SEEN /hpf (0-5)
[2021-09-26 16:02] LABS: Color, Urine Yellow (Yellow); Glucose, Dipstick Normal (Normal); Ketone-Dipstick 50 mg/dl (Negative); Leukocyte Esterase-Dipstick Negative /ul (Negative); Nitrite-Dipstick Negative (Negative); Occult Blood-Urine 25 /ul (Negative); Protein-Dipstick 30 mg/dl (Negative); Specific Gravity, Urine 1.025 (1.002-1.030); Urine Bilirubin Dipstick Negative (Negative); Urine Clarity Sl. Cloudy (Clear); Urine Urobilinogen Normal (Normal)
[2021-09-26 16:12] LABS: Hyaline Cast 10-25 SEEN /lpf (0-5); White Blood Cells 0-5 SEEN /hpf (0-5)
[2021-09-26 16:29] LABS: Reflex Lactate? Y
[2021-09-26 16:40] LABS: Amphetamine Urine VISTA NEGATIVE (<1000 ng/mL); Barbiturate Urine VISTA NEGATIVE (< 200 ng/mL); Benzodiazepine Urine VISTA NEGATIVE (< 200 ng/mL); Cocaine Urine VISTA NEGATIVE (< 300 ng/mL); Ecstacy Urine VISTA NEGATIVE (< 500 ng/mL); Methadone Urine VISTA NEGATIVE (< 300 ng/mL); PCP Urine VISTA NEGATIVE (< 25 ng/mL); THC Urine VISTA NEGATIVE (< 50 ng/mL); Vista UDS pH Range 4
[2021-09-26 17:31] LABS: Magnesium 2.5 mg/dL (1.6-2.6)
[2021-09-26] MEDS: Phenobarbital 32.4 MG Tablet 64.8 MG PO ×2 (17:32→20:57)
[2021-09-26] MEDS: 0.9% Saline Lock 10 ML Syringe IV (18:08)
[2021-09-26 18:17] LABS: Lactic Acid 4.2 mmol/L (0.4-1.9)
[2021-09-26] MEDS: Folic Acid 1 MG Tablet PO (18:27)
[2021-09-26] MEDS: Thiamine Hydrochloride 100 MG Tablet PO (18:27)
[2021-09-26] MEDS: Famotidine 200 MG/20 ML MDV 20 MG in 0.9% Normal Saline (Pres. free 8 ML 300 MG IV (18:27)
[2021-09-27] VITALS (12 sets, daily range): BP systolic 114–164; BP diastolic 62–106; PULSE 70–91; RESP 14–23; TEMP 36.8–37.3; O2SAT 95–99
[2021-09-27] MEDS: hydrOXYzine PAM 25 MG Capsule 50 MG PO ×3 (00:08→10:47)
[2021-09-27] MEDS: Phenobarbital 32.4 MG Tablet 64.8 MG PO ×6 (00:30→21:22)
[2021-09-27 03:18] LABS: Absolute Lymphocyte Count 1.72 X10^3/uL (0.83-4.51); Absolute Neutrophil Count 5.6 X10^3/uL (2.0-7.7); Basophil# 0.04 X10^3/uL; Basophil% 0.5 % (0-1); Eosinophil# 0.03 X10^3/uL; Eosinophils% 0.4 % (0-5); Hematocrit 38.4 % (40-54); Hemoglobin 13.2 g/dL (13.0-16.5); Lymphocyte # 1.72 X10^3/ul (0.83-4.51); Lymphocyte % 21.6 % (19-41); Mean Corp Hgb Conc 34.4 g/dL (32-36); Mean Corpuscular Hgb 29.7 pg (27.0-32.0); Mean Corpuscular Volume 86.5 fL (80-94); Mean Platelet Vol. 8.4 fl (6.2-12.0); Monocyte# 0.57 X10^3/uL; Monocyte% 7.2 % (0-10); NRBC Flagged by Analyzer 0 % (0-5); Neutrophil # 5.58 X10^3/uL (2.7-7.7); Neutrophil % 69.9 % (47-70); Platelet Count 145 K/mm3 (150-450); RBC Distribution Width CV 13.2 % (11.6-14.6); RBC Distribution Width SD 41.7 fl (35.1-43.9); Red Blood Count 4.44 M/mm3 (4.6-6.2)
[2021-09-27 03:35] LABS: ALB/GLOB Ratio 0.9 RATIO (0.9-2.4); AST(SGOT) 38 U/L (15-37); Alanine Aminotransfer ALT/SGPT 63 U/L (16-61); Alkaline Phosphatase 47 U/L (45-117); Anion Gap 8 (5-15); BUN 19 mg/dL (7-18); BUN/Creat Ratio 25.7 RATIO (10-20); Calcium,Total 7.3 mg/dL (8.5-10.1); Chloride 102 mmol/L (98-107); Creatinine, Serum 0.74 mg/dL (0.70-1.30); EST Glomerular Filtration Rate 115 mL/min (>60); Est Glom Filt Rate - Afr Amer 139 mL/min (>60); Estimated Creatinine Clearance 115.89 ml/min; Globulin 3.4 g/dL (2.2-4.2); Glucose 116 mg/dL (74-106); Potassium 4.1 mmol/L (3.5-5.1); Protein, Total 6.4 g/dL (6.4-8.2); Sodium Level 133 mmol/L (136-145)
[2021-09-27] MEDS: 0.9% Normal Saline 1,000 ML 200 ML IV (04:56)
--- NOTE | 2021-09-27 07:00 | PCM.PN.HOSP ---
Subjective Subjective Follow-up on hypertension/acute alcohol withdrawal: Patient was seen and examined. He denied any new complaint. He has been off his Levophed since yesterday at 4pm. Denies any chest pain, or dizziness or palpitations. Patient stated that he is fine and wants to be discharged. I discussed that he has not even been 48 hours for monitoring for alcohol withdrawal as he had severely elevated alcohol levels on admission. Objective Data Objective Data Vital Signs: Vital Signs Temp Pulse Resp BP Pulse Ox 98.9 F 86 19 H 142/82 H 95 09/27/21 04:00 09/27/21 06:00 09/27/21 06:00 09/27/21 06:00 09/27/21 05:00 Oxygen Flow Rate (L/min) 3 Oxygen Delivery Method Room Air Weight: 113.9 kg Body Mass Index (BMI) 33.8 Intake & Output: Intake and Output for Last 24 Hours 09/25/21 09/26/21 09/27/21 23:59 23:59 23:59 Intake Total 2709.50 / 3709.50 3350 / 3350 Balance 2709.50 / 3709.50 3350 / 3350 Lab / Micro Data Result Diagrams: 09/27/21 03:10 09/27/21 03:10 Labs: Laboratory Results - last 24 hr 09/26/21 12:15: WBC 9.0, RBC 5.23, Hgb 15.5, Hct 46.2, MCV 88.3, MCH 29.6, MCHC 33.5, RDW Std Deviation 43.0, RDW Coeff of Trever 13.2, Plt Count 210, MPV 8.3, Immature Gran % (Auto) 0.300, Neut % (Auto) 82.1 H, Lymph % (Auto) 13.8 L, [place] % (Auto) 3.3, Eos % (Auto) 0.1, Baso % (Auto) 0.4, Absolute Neuts (auto) 7.4, Absolute Lymphs (auto) 1.24, Nucleated RBC % 0 09/26/21 12:15: Sodium 136, Potassium 4.1, Chloride 101, Carbon Dioxide 16.0 L, Anion Gap 19 H, BUN 26 H, Creatinine 1.31 H, Estim Creat Clear Calc 71.46, Est GFR (MDRD) Af Amer 72, Est GFR (MDRD) Non-Af 60, BUN/Creatinine Ratio 19.8, Glucose 83, Calcium 7.8 L, Total Bilirubin 0.60, Direct Bilirubin 0.22, AST 43 H, ALT 76 H, Alkaline Phosphatase 56, Total Protein 7.6, Albumin 3.6, Globulin 4.0 09/26/21 12:15: Ethyl Alcohol 453.0 H* 09/26/21 12:15: Lactic Acid 5.4 H* 09/26/21 12:15: Magnesium 2.5 09/26/21 15:51: Urine Opiates Screen NEGATIVE, Urine Methadone Screen NEGATIVE, Ur Barbiturates Screen NEGATIVE, Ur Phencyclidine Scrn NEGATIVE, Ur Amphetamines Screen NEGATIVE, MDMA (Ecstasy) Screen NEGATIVE, U Benzodiazepines Scrn NEGATIVE, Urine Cocaine Screen NEGATIVE, U Cannabinoids Screen NEGATIVE, Ur Drug Screen Comment 09/26/21 15:51: Urine Color Yellow, Urine Clarity Sl. Cloudy, Urine pH 6.0, Ur Specific [place] 1.025, Urine Protein 30 H, Urine Glucose (UA) Normal, Urine Ketones 50 H, Urine Occult Blood 25 H, Urine Nitrite Negative, Urine Bilirubin Negative, Urine Urobilinogen Normal, Ur Leukocyte Esterase Negative, Urine RBC 0 SEEN, Urine WBC 0-5 SEEN, Ur Squamous Epith Cells 0 SEEN, Urine Bacteria 0 SEEN, Hyaline Casts 10-25 SEEN, Urine Mucus 0 SEEN 09/26/21 17:05: Lactic Acid 4.2 H* 09/27/21 03:10: WBC 8.0, RBC 4.44 L, Hgb 13.2, Hct 38.4 L, MCV 86.5, MCH 29.7, MCHC 34.4, RDW Std Deviation 41.7, RDW Coeff of Trever 13.2, Plt Count 145 L, MPV 8.4, Immature Gran % (Auto) 0.400, Neut % (Auto) 69.9, Lymph % (Auto) 21.6, [place] % (Auto) 7.2, Eos % (Auto) 0.4, Baso % (Auto) 0.5, Absolute Neuts (auto) 5.6, Absolute Lymphs (auto) 1.72, Nucleated RBC % 0 09/27/21 03:10: Sodium 133 L, Potassium 4.1, Chloride 102, Carbon Dioxide 23.0, Anion Gap 8, BUN 19 H, Creatinine 0.74, Estim Creat Clear Calc 115.89, Est GFR (MDRD) Af Amer 139, Est GFR (MDRD) Non-Af 115, BUN/Creatinine Ratio 25.7 H, Glucose 116 H, Calcium 7.3 L, Total Bilirubin 0.90, AST 38 H, ALT 63 H, Alkaline Phosphatase 47, Total Protein 6.4, Albumin 3.0 L, Globulin 3.4, Albumin/Globulin Ratio 0.9 Radiography Diagnostic Testing: Radiology Impression Chest X-Ray 09/26/21 13:50 IMPRESSION: Support devices: A right internal jugular approach central venous catheter terminates in the superior vena cava. Low lung volumes accentuate the interstitial markings and mediastinal prominence. No focal consolidations, effusions, or sizable pneumothorax. Questionable mild cardiomegaly although this may be related to low lung volumes. Stable partially visualized surgical fusion hardware. No acute findings in the bones or soft tissues. Electronically Signed: Sandro Kerrel, at 14:19 EDT , Physical Exam Narrative Physical exam: General: Alert, Oriented x3, Cooperative, intoxicated, morbidly obese HEENT: Atraumatic Oral: Moist Mucosa Neck: Supple Lungs: Clear to auscultation Cardiovascular: HS I+II, regular, no murmurs Abdomen: Bowel Sounds Present, Soft, Non Tender Extremities: No edema Skin: No rashes, No breakdown Neurological: Grossly intact, slight slurring of the words from intoxication Psych/Mental Status: Appropriate Assessment & Plan Assessment/Plan (1) Hypotension: QUALIFIERS: Hypotension type: unspecified hypotension type Qualified Code(s): I95.9 - Hypotension, unspecified (2) Acute alcohol intoxication: QUALIFIERS: Complication of substance-induced condition: uncomplicated Qualified Code(s): F10.920 - Alcohol use, unspecified with intoxication, uncomplicated PLAN: 1. Acute hypotension, resolved Status post fluid boluses, and a short period of time on Levophed. Continue to monitor vitals 2. Acute alcohol intoxication, last seen was score was 5 Continue on phenobarb taper, folic acid, multivitamin, and thiamine 3. Depression, continue Lexapro 4. Morbid obesity, BMI 44.9, complicates care and recovery 5. DVT PPx- Heparin SC Charges/Coding Visit Charges Inpatient E&M: 15416 Subs Hosp L2
--- NOTE | 2021-09-27 07:08 | CON.PCM.CC_ITS ---
Assessment & Plan Assessment/Plan (1) Hypotension: (2) Acute alcohol intoxication: PLAN: RECOMMENDATIONS: 1. Continue CIWA protocol 2. Phenobarb taper as ordered 3. Outpatient follow-up with AA and support groups 4. Discontinue IV fluids 5. Hemodynamically stable on room air. Will sign off from a critical care perspective IMPRESSIONS: 1. Hypotension Clinical suspicion for dehydration as an etiology of patient's hypotension on presentation. Patient did have hemoconcentration and elevation in creatinine. This has responded well to fluid resuscitation. Patient is not giving any clinical history to be suggestive of sepsis. Patient likely did have an element of ketoacidosis on presentation leading to elevated anion gap. Will discontinue IV fluids. If patient is able to tolerate p.o., potential discharge later today, but defer to the hospitalist. 2. Acute alcohol intoxication/alcoholism Patient with a significantly elevated alcohol level on presentation. Patient has responded well to therapy. Patient is currently on phenobarb with relatively controlled symptomatology. Unfortunately, it is unlikely the patient will be in withdrawal in the next 24 hours given the level of alcohol on p resentation. Defer to the hospitalist on whether or not additional 24 hours of monitoring is necessary. Patient reportedly has a support structure as an outpatient already established. 3. Obesity/hypertension/depression Complicates care, management, recovery and prognosis. Okay to reinitiate baseline antihypertensives and antidepressant from my perspective. Did e ncourage weight loss. Patient may benefit from outpatient evaluation for obstructive sleep apnea given body habitus. HPI Consult Data Date of Consult: 09/27/21 HPI Narrative HPI Narrative: MARY DARBY is a 56 M, with past medical history listed b elow, who presents to [facility] on 09/26/2021 secondary to acute alcohol intoxication via EMS. Patient was not able to provide much additional history outside of drinking a bunch of vodka recently. Patient is a known alcoholic and is established with AA. Patient had denied any overdose of medications. In the ER, patient was hypotensive at 73/49, but afebrile and not tachycardic. Patient was placed on supplemental oxygen, but was saturating 93% on room air on presentation. Laboratory work-up showed a white blood cell count of 9, hemoglobin of 15.5 and platelets of 210. Patient did have a slightly elevated creatinine of 1.3, bicarbonate of 16 and an anion gap of 19. Patient's alcohol level was noted at 453. Lactate was elevated at 5.4. Chest x-ray showed only a properly placed central line. Central line was placed secondary to hypotension that was not responding to 3 L of IV fluids. Given patient's needs for pressor, patient was admitted to the intensive care unit and initiated on the CIWA protocol and phenobarbital. Shortly after arrival in the intensive care unit, patient was able to be taken off of pressor therapy. Patient's CIWA scores have been acceptable thus far. Patient has not had any seizure activity noted. Patient is appropriate and following commands this morning. In retrospect, patient reports he has been an alcoholic for over 15 years. 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 Patient is unclear on why he started to drink outside of overconfidence. Patient stated that he had been on a 5-day binge of alcohol drinking beer and vodka. Patient reports that he is in a monitoring program through the [employer]. Patient is not aware of any previous seizures with withdrawal. Patient is very clear that he plans on reestablishing with his AA group. Patient was very clear that he did not take any extra antihypertensives. Patient does state that he missed court on Friday. Patient denies any recent fever, chills, nausea or vomiting. No lower extremity edema or syncope has been reported. Patient has not had any recent changes in his antihypertensive medications. Review of systems otherwise negative from a constitutional, HEENT, respiratory, cardiovascular, GI, genitourinary, musculoskeletal, skin, neurologic, psychiatric and hematologic system unless stated above. REPLACED BY [facility] Medical History Alcohol abuse Depression Hypertension Home Medications escitalopram oxalate 10 mg PO DAILY 07/08/20 [History Last Taken Unknown] nadolol 40 mg PO DAILY 07/08/20 [History Last Taken Unknown] quinapril 40 mg PO DAILY 07/08/20 [History Last Taken Unknown] Allergy/AdvReac Type Severity Reaction Status Date / Time No Known Allergies Allergy Verified 07/08/20 09:37 Family History Father Pancreatitis Mother No problems noted. Surgical History History of neck surgery Social History household members: spouse housing: house Smoking Status: Never smoker alcohol intake: current substance use type: does not use ROS ROS Narrative See HPI Physical Exam Const alert, oriented x3 and no apparent distress General Appearance: cooperative and well developed Nutritional Appearance: obese HEENT normocephalic, head/scalp atraumatic and moist oral mucous membranes Eyes PERRL and EOMs intact bilaterally Neck full ROM and no lymphadenopathy Chest inspection of chest normal Resp normal respiratory effort and no use of accessory muscles Effort and Inspection: able to speak in complete sentences Auscultation: clear to auscultation bilaterally; Negative for rales, rhonchi or wheezes Percussion: Negative for dullness Cardio regular rate, regular rhythm, S1 normal heart sound, S2 normal heart sound, no murmurs, no rub and no gallops GI normal to inspection, nondistended, normoactive bowel sounds no CVA tenderness Extremity no clubbing, cyanosis or edema Skin no rashes or lesions noted Neuro oriented x3, CN's II-XII intact bilaterally, moves all extremities and no focal motor deficits Psych cooperative and affect normal Lab / Micro Data Result Diagrams: 09/27/21 03:10 09/27/21 03:10 Labs: Laboratory Results - last 24 hr 09/26/21 12:15: WBC 9.0, RBC 5.23, Hgb 15.5, Hct 46.2, MCV 88.3, MCH 29.6, MCHC 33.5, RDW Std Deviation 43.0, RDW Coeff of Trever 13.2, Plt Count 210, MPV 8.3, Immature Gran % (Auto) 0.300, Neut % (Auto) 82.1 H, Lymph % (Auto) 13.8 L, Chippewa % (Auto) 3.3, Eos % (Auto) 0.1, Baso % (Auto) 0.4, Absolute Neuts (auto) 7.4, Absolute Lymphs (auto) 1.24, Nucleated RBC % 0 09/26/21 12:15: Sodium 136, Potassium 4.1, Chloride 101, Carbon Dioxide 16.0 L, Anion Gap 19 H, BUN 26 H, Creatinine 1.31 H, Estim Creat Clear Calc 71.46, Est GFR (MDRD) Af Amer 72, Est GFR (MDRD) Non-Af 60, BUN/Creatinine Ratio 19.8, Glucose 83, Calcium 7.8 L, Total Bilirubin 0.60, Direct Bilirubin 0.22, AST 43 H , ALT 76 H, Alkaline Phosphatase 56, Total Protein 7.6, Albumin 3.6, Globulin 4.0 09/26/21 12:15: Ethyl Alcohol 453.0 H* 09/26/21 12:15: Lactic Acid 5.4 H* 09/26/21 12:15: Magnesium 2.5 09/26/21 15:51: Urine Opiates Screen NEGATIVE, Urine Methadone Screen NEGATIVE, Ur Barbiturates Screen NEGATIVE, Ur Phencyclidine Scrn NEGATIVE, Ur Amphetamines Screen NEGATIVE, MDMA (Ecstasy) Screen NEGATIVE, U Benzodiazepines Scrn NEGATIVE, Urine Cocaine Screen NEGATIVE, U Cannabinoids Screen NEGATIVE, Ur Drug Screen Comment 09/26/21 15:51: Urine Color Yellow, Urine Clarity Sl. Cloudy, Urine pH 6.0, Ur Specific Franklin 1.025, Urine Protein 30 H, Urine Glucose (UA) Normal, Urine Ketones 50 H, Urine Occult Blood 25 H, Urine Nitrite Negative, Urine Bilirubin Negative, Urine Urobilinogen Normal, Ur Leukocyte Esterase Negative, Urine RBC 0 SEEN, Urine WBC 0-5 SEEN, Ur Squamous Epith Cells 0 SEEN, Urine Bacteria 0 SEEN, Hyaline Casts 10-25 SEEN, Urine Mucus 0 SEEN 09/26/21 17:05: Lactic Acid 4.2 H* 09/27/21 03:10: WBC 8.0, RBC 4.44 L, Hgb 13.2, Hct 38.4 L, MCV 86.5, MCH 29.7, MCHC 34.4, RDW Std Deviation 41.7, RDW Coeff of Trever 13.2, Plt Count 145 L, MPV 8.4, Immature Gran % (Auto) 0.400, Neut % (Auto) 69.9, Lymph % (Auto) 21.6, Chippewa % (Auto) 7.2, Eos % (Auto) 0.4, Baso % (Auto) 0.5, Absolute Neuts (auto) 5.6, Absolute Lymphs (auto) 1.72, Nucleated RBC % 0 09/27/21 03:10: Sodium 133 L, Potassium 4.1, Chloride 102, Carbon Dioxide 23.0, Anion Gap 8, BUN 19 H, Creatinine 0.74, Estim Creat Clear Calc 115.89, Est GFR (MDRD) Af Amer 139, Est GFR (MDRD) Non-Af 115, BUN/Creatinine Ratio 25.7 H, Glucose 116 H, Calcium 7.3 L, Total Bilirubin 0.90, AST 38 H, ALT 63 H, Alkaline Phosphatase 47, Total Protein 6.4, Albumin 3.0 L, Globulin 3.4, Albumin/Globulin Ratio 0.9 Radiology Impression Chest X-Ray 09/26/21 13:50 IMPRESSION: Support devices: A right internal jugular approach central venous catheter terminates in the superior vena cava. Low lung volumes accentuate the interstitial markings and mediastinal prominence. No focal consolidations, effusions, or sizable pneumothorax. Questionable mild cardiomegaly although this may be related to low lung volumes. Stable partially visualized surgical fusion hardware. No acute findings in the bones or soft tissues. Electronically Signed: Sandro Feliciano, at 14:19 EDT , Charges/Coding Visit Charges Inpatient E&M: 60596 Init Hosp L2
[2021-09-27] MEDS: Folic Acid 1 MG Tablet PO (09:30)
[2021-09-27] MEDS: Famotidine 200 MG/20 ML MDV 20 MG in 0.9% Normal Saline (Pres. free 8 ML 300 MG IV (10:38)
[2021-09-27] MEDS: Thiamine Hydrochloride 100 MG Tablet PO (10:38)
[2021-09-27] MEDS: 0.9% Saline Lock 10 ML Syringe IV (10:39)
--- NOTE | 2021-09-27 10:47 | CASEMGMT ---
Social Work LOTUS met with pt and introduced self and role of SW. Pt states he has been an alcoholic for many years. He has attended AA meetings regularly since 2007. Pt states he has remained sober much of the time but does have relapses. Pt openly willing to discuss alcohol use and recovery. Pt denies desire for the [facility] program as he states he is aware of what he needs to do to stay sober. Pt plans to attend AA upon discharge. SW provided pt with updated list of AA meetings, [facility] information and list of other substance use programs in the area. SW will remain available should further needs arise. KOMAL Chappell
--- NOTE | 2021-09-27 11:31 | CHAPLAIN ---
Type of Pastoral Visit _x__ Initial Visit ___ Follow-up Visit ___ On-call Visit ___ General Patient Visit ___ Spiritual Assessment ___ Family Conference ___ Bereavement ___ Rapid Response ___ Code Blue ___ Other (describe below) Pastoral Care Referral From _x__ Patient ___ Family ___ Nurse ___ Physician ___ Orthopedic Rn ___ Game Designer/Creative Director ___ Other (describe below) Sacrament/Intervention _x__ Active listening ___ Anointing ___ Sabianist ___ Bereavement ___ Communion _x__ [place] exploration ___ _x__ Life review _x__ Prayer ___ Reconciliation ___ Sacrament of Sick _x__ Supportive presence ___ Wedding ___ Other (describe below) Pastoral Comments patient willing to talk openly about his life and his alcohol addiction; pt has relapsed and explains much of what he knows about addiction/disease and how to continue onto path of sobriety; pt has that does support him; pt is employed gainfully; pt is connected to advent although he calls himself 'spiritual but not adventism'; pt welcomes presence and prayer for spiritual support
--- NOTE | 2021-09-27 14:07 | ADDICTION ---
This worker met with pt to discuss d/c and treatment planning. He's agreeable to treatment but would like to find out the requirements of the [facility]. he agreed to follow up with [facility] and follow their recommendations as well. This worker encouraged him to stay and complete his phenobarbital dosage in order to hinder w/d symptoms. Pt reported he understood.
[2021-09-27] MEDS: Nadolol 40 MG Tablet PO (16:46)
[2021-09-27] MEDS: Escitalopram Oxalate 10 MG Tablet PO (16:46)
[2021-09-27] MEDS: Lisinopril 40 MG Tablet PO (16:46)
--- NOTE | 2021-09-27 20:59 | NURSING ---
RIJ triple lumen cath DC'd while pt in supine position. Catheter intact. Site without bleeding or draining. No redness or edema noted at site. Bacitracin and occlusive transparent dressing applied.
[2021-09-28] MEDS: Phenobarbital 32.4 MG Tablet 64.8 MG PO ×2 (01:13→05:06)
[2021-09-28 02:10] VITALS: BP 122/84; PULSE 71; RESP 16; TEMP 36.5; O2SAT 99
[2021-09-28 06:54] LABS: ALB/GLOB Ratio 0.9 RATIO (0.9-2.4); AST(SGOT) 31 U/L (15-37); Alanine Aminotransfer ALT/SGPT 49 U/L (16-61); Albumin, Serum 3.1 g/dL (3.2-5.0); Alkaline Phosphatase 39 U/L (45-117); Anion Gap 7 (5-15); BUN 12 mg/dL (7-18); BUN/Creat Ratio 18.7 RATIO (10-20); Calcium,Total 7.8 mg/dL (8.5-10.1); Chloride 101 mmol/L (98-107); Creatinine, Serum 0.64 mg/dL (0.70-1.30); EST Glomerular Filtration Rate 136 mL/min (>60); Est Glom Filt Rate - Afr Amer 164 mL/min (>60); Globulin 3.3 g/dL (2.2-4.2); Glucose 110 mg/dL (74-106); Potassium 3.3 mmol/L (3.5-5.1); Protein, Total 6.4 g/dL (6.4-8.2); Sodium Level 135 mmol/L (136-145)
--- NOTE | 2021-09-28 07:10 | DCINST_ITS ---
Discharge Instructions Diet Discharge Diet: Low fat / Low cholesterol and 2000 mg Sodium Diet Activity Discharge Activity: Return to Normal Activity Follow Up Care Test Results: Test results from this visit will be discussed in further detail at your follow-up appointment, if applicable. Discharge Plan Admission Admit Date/Time: 09/26/21 15:31 Primary Reason for Your Visit: Acute alcohol withdrawal, hypotension Attending Provider: Carmita Beckwith Primary Care Provider: Milan Hollins Consulting Providers: Brock Constantino ; Colby Sim ; Cathie Salazar PRICING ASSOCIATE Instructions Additional Instructions / Restrictions: You are strongly advised to avoid alcohol or use of any illicit drug. Avoid smoking. Follow-up with your outpatient rehab program as scheduled. Discharge Orders/Prescriptions Prescriptions: Continued quinapril 40 MG tablet 40 mg PO DAILY RF: 0 nadolol 40 MG tablet 40 mg PO DAILY RF: 0 escitalopram oxalate 10 MG tablet 10 mg PO DAILY RF: 0 Referrals / Follow Up: Milan Hollins MD [Primary Care Provider] - Within 1 Week Disposition Disposition (needs filled in before D/C Order can be placed): Home, Self Care
--- NOTE | 2021-09-28 07:11 | DS.PCM_ITS ---
Providers Date of Admission: 09/26/21 Date of Discharge: 09/28/21 Primary Care Physician: Dr. Milan Hollins MD Consultations 09/26/21 17:10 Consult: Home Appliance Technician / Pulmonary Medicine Routine Consulting Provider: Pulmonary Medicine dunia Kaur Reason for Consult: Hypotension EMERGENT Consult: No MD Notified: Yes Date Notified: 09/26/21 Time Notified: 16:37 Method of Notification: Text Reason For Visit: HYPOTENSION Diagnosis Discharge Diagnosis (1) Hypotension: Status: Resolved Code(s): I95.9 - Hypotension, unspecified Qualifiers: Hypotension type: unspecified hypotension type Qualified Code(s): I95.9 - Hypotension, unspecified (2) Acute alcohol intoxication: Status: Acute Code(s): F10.929 - Alcohol use, unspecified with intoxication, unspecified Qualifiers: Complication of substance-induced condition: uncomplicated Qualified Code(s): F10.920 - Alcohol use, unspecified with intoxication, uncomplicated (3) Hypokalemia due to loss of potassium: Status: Acute Code(s): E87.6 - Hypokalemia Medications at Discharge Home Medications escitalopram oxalate 10 mg PO DAILY 07/08/20 nadolol 40 mg PO DAILY 07/08/20 quinapril 40 mg PO DAILY 07/08/20 Hospital Course Operations None Procedures Central line placement Summary of Care Provided Minutes Spent on Discharge: 35 Hospital Course: 56-year-old male with past medical history of hypertension, chronic alcohol abuse who comes in requesting for medical stabilization from alcohol withdrawal. Patient admits to drinking about 1/5 of vodka a day. Patient stated that he binge drinks. His admitting alcohol level was 453. In the emergency room, patient was found to be hypotensive, was not responsive to IV fluids. He had a central line placed and he was started on Levophed in the emergency room. He was subsequently admitted to the ICU. Work-up for sepsis was negative. Was unsure if patient had taken more of his blood pressure medications or the hypotension was due to dehydration. His admitting chest x-ray and UA were unremarkable. Patient was off Levophed in a couple of hours after admission. He remained stable over. He was transferred to the [facility] floor. He was continued on the phenobarbital withdrawal protocol. He was seen by the clay worker, he will follow-up in the outpatient with 180. His CIWA scores remain very low and patient was discharged to follow-up in the outpatient. Physical Exam Narrative Physical exam: General: Alert, Oriented x3, Cooperative HEENT: Atraumatic Oral: Moist Mucosa Neck: Supple Lungs: Clear to auscultation Cardiovascular: HS I+II, regular, no murmurs Abdomen: Bowel Sounds Present, Soft, Non Tender Extremities: No edema Skin: No rashes, No breakdown Neurological: Grossly intact Psych/Mental Status: Appropriate Weight / BMI Weight Weight: 113.9 kg Body Mass Index (BMI) 33.8 ABG / Lab / Microbiology Data Result Diagrams: 09/27/21 03:10 09/28/21 05:45 Laboratory: Laboratory Results - last 24 hr 09/28/21 05:45: Sodium 135 L, Potassium 3.3 L, Chloride 101, Carbon Dioxide 27.0, Anion Gap 7, BUN 12, Creatinine 0.64 L, Estim Creat Clear Calc 134.00, Est GFR (MDRD) Af Amer 164, Est GFR (MDRD) Non-Af 136, BUN/Creatinine Ratio 18.7, Glucose 110 H, Calcium 7.8 L, Total Bilirubin 1.40 H, AST 31, ALT 49, Alkaline Phosphatase 39 L, Total Protein 6.4, Albumin 3.1 L, Globulin 3.3, Albumin/Globu tameka Ratio 0.9 D/C Instructions Discharge Diet: Low fat / Low cholesterol and 2000 mg Sodium Diet Meaningful Use Info Meaningful Use Diagnoses (Choose all that apply): None applicable Discharge Plan Admission Admit Date/Time: 09/26/21 15:31 Primary Reason for Your Visit: Acute alcohol withdrawal, hypotension Attending Provider: Carmita Beckwith Primary Care Provider: Milan Hollins Consulting Providers: Brock Constantino ; Colby Sim ; Cathie Salazar MID LEVEL PROJECT MANAGER Instructions Additional Instructions / Restrictions: You are strongly advised to avoid alcohol or use of any illicit drug. Avoid smoking. Follow-up with your outpatient rehab program as scheduled. Discharge Orders/Prescriptions Prescriptions: Continued quinapril 40 MG tablet 40 mg PO DAILY RF: 0 nadolol 40 MG tablet 40 mg PO DAILY RF: 0 escitalopram oxalate 10 MG tablet 10 mg PO DAILY RF: 0 Referrals / Follow Up: Milan Hollins MD [Primary Care Provider] - Within 1 Week Disposition Disposition (needs filled in before D/C Order can be placed): Home, Self Care Charges/Coding Visit Charges Inpatient E&M: 43403 Disch Hosp
[2021-09-28 08:18] VITALS: BP 137/89; PULSE 74; RESP 18; TEMP 36.7; O2SAT 97
[2021-09-28] MEDS: Thiamine Hydrochloride 100 MG Tablet PO (08:26)
[2021-09-28] MEDS: Folic Acid 1 MG Tablet PO (08:26)
[2021-09-28] MEDS: Nadolol 40 MG Tablet PO (08:26)
[2021-09-28] MEDS: Potassium Chloride Oral Tablet 20 MEQ 40 MEQ PO (08:26)
[2021-09-28] MEDS: Escitalopram Oxalate 10 MG Tablet PO (08:27)
[2021-09-28] MEDS: Lisinopril 40 MG Tablet PO (08:27)
== END 2021-09-28 09:30 | disposition home or self-care (01) | DRG 315 ==
LOC: ED 15:21 → ICU 15:46 → MS3 09-27 17:10
PROVIDERS: Admitting Provider Internal Medicine; Emergency Provider Emergency Medicine; PCP Family Medicine; Visit Provider Internal Medicine
DX: I95.9 Hypotension, unspecified (principal); F10.239 Alcohol dependence with withdrawal, unspecified; E87.2 Acidosis; Z68.41 Body mass index [BMI] 40.0-44.9, adult; E66.01 Morbid (severe) obesity due to excess calories; F10.229 Alcohol dependence with intoxication, unspecified; I10 Essential (primary) hypertension; E86.0 Dehydration; E87.6 Hypokalemia; F32.A Depression, unspecified; Z79.899 Other long term (current) drug therapy; Y90.8 Blood alcohol level of 240 mg/100 ml or more
CPT/HCPCS: 36415; 71045; 80048; 80053; 80076; 80307; 81001; 82077; 83605; 83735; 85025; 93005; 99284; J7030; J7050; A4216; C1751; J3490

== ENCOUNTER → 2025-01-25 | Outpatient (CLI) | payer OTHER, SELFPAY ==
--- NOTE | 2025-01-25 11:32 | NEURO ---
NCS and/or EMG Patient Report Ordering Doctor: Gallito Hollins DATE OF SERVICE: 01/25/25 Clinical Summary: 59 year old male patient with symptoms of numbness in the left hand. He has a history of cervical spine surgery. Nerve Conduction Studies Summary: Nerve conduction studies were performed in the left upper extremity. The left median-D2 SNAP was absent. The left ulnar-D5 SNAP amplitude was reduced. The left median-APB CMAP was absent. Needle Examination Summary: Needle examination of select muscles of the left upper extremity demonstrated a higher proportion of motor unit action potentials with reduced recruitment, increased amplitude, increased duration, and polyphasia in the left triceps, flexor carpi radialis, flexor carpi ulnaris, extensor indicis proprius, first dosral interosseous, and abductor pollicis brevis muscles. Impression: This is an abnormal study. There is electrodiagnostic evidence of the following - 1) Severe, right median mononeuropathy at the wrist (carpal tunnel syndrome), with secondary motor fiber axonal loss 2) Chronic, right C7 to C8 polyradiculopathy 3) Non-localizable, right ulnar mononeuropathy Multi Select Codes Neurology Neurology Interp Codes: 95166-98 Musc test done w/n test comp (interp) (1) and 70403-26 Nrv cndj tst 5-6 studies (interp)
--- NOTE | 2025-01-25 11:32 | NEURO ---
NCS and/or EMG Patient Report Ordering Doctor: Gallito Hollins DATE OF SERVICE: 01/25/25 Clinical Summary: 59 year old male patient with symptoms of numbness in the left hand. He has a history of cervical spine surgery. Nerve Conduction Studies Summary: Nerve conduction studies were performed in the left upper extremity. The left median-D2 SNAP was absent. The left ulnar-D5 SNAP amplitude was reduced. The left median-APB CMAP was absent. Needle Examination Summary: Needle examination of select muscles of the left upper extremity demonstrated a higher proportion of motor unit action potentials with reduced recruitment, increased amplitude, increased duration, and polyphasia in the left triceps, flexor carpi radialis, flexor carpi ulnaris, extensor indicis proprius, first dosral interosseous, and abductor pollicis brevis muscles. Impression: This is an abnormal study. There is electrodiagnostic evidence of the following - 1) Severe, right median mononeuropathy at the wrist (carpal tunnel syndrome), with secondary motor fiber axonal loss 2) Chronic, right C7 to C8 polyradiculopathy 3) Non-localizable, right ulnar mononeuropathy Multi Select Codes Neurology Neurology Interp Codes: 29164-98 Musc test done w/n test comp (interp) (1) and 30723-95 Nrv cndj tst 5-6 studies (interp)
== END | disposition home or self-care (01) ==
LOC: PSN 09:57
PROVIDERS: PCP Family Medicine; Referring Provider Specialist; Visit Provider Specialist
DX: G56.02 Carpal tunnel syndrome, left upper limb (principal); R20.2 Paresthesia of skin
CPT/HCPCS: 95886; 95909